=== PATIENT | female | born 1975 | race Caucasian/White ===

== ENCOUNTER 2017-09-15 07:40 | Emergency (ER) | payer SELFPAY ==
[2017-09-15 09:39] LABS: Bilirubin Negative (Negative); Blood, Urine Negative (Negative); Clarity Clear (Clear); Glucose, Urine (Dipstick) Negative (Negative); Leukocyte Negative (Negative); Nitrite Negative (Negative); Protein, Urine (Dipstick) Negative (Neg-Trace); Urobilinogen 0.2 mg/dL (0.2-1.0)
[2017-09-15 09:44] LABS: Specific Gravity, Urine 1.004 (1.002-1.036)
[2017-09-15 09:45] LABS: Pregnancy Test - Urine (BHCG) Negative (Negative); Pregu Control Background? CLEAR/WHITE (CLR/WHITE); Pregu Control Bar Appear? YES (CONTROL BAR); Specific Gravity 1.004 (1.002-1.036)
--- NOTE | 2017-09-15 11:32 | ULT ---
PELVIC ULTRASOUND TRANSVAGINAL AND TRANSABDOMINAL WITH GRAYSCALE AND COLOR FLOW IMAGING PERFORMED: FINDINGS: There is prominence of the endometrium at 1.4 cm. There is no focal uterine lesion identified. Dopple r evaluation reveals flow at each ovary. No suspicious ovarian lesions. Mild free pelvic fluid is non specific. There is also a mild degree of endometrial canal fluid. IMPRESSION: 1. Nonspecific mild free pelvic fluid and endometrial fluid. 2. Prominent endometrium. This may be physiologic, although it is nonspecific. Correlate for patient' s menstrual state. If not performed, Beta HCG value is necessary to exclude endometrial stimulation f rom ectopic , which is not excluded on the basis of this exam. POS: [facility]
== END 2017-09-15 10:05 | disposition home or self-care (01) ==
LOC: MADERS 07:40
DX: R10.31 Right lower quadrant pain (principal); F17.210 Nicotine dependence, cigarettes, uncomplicated
CPT/HCPCS: 76856; 81003; 81025

== ENCOUNTER 2017-09-17 08:13 | Emergency (ER) | payer MEDICAID, SELFPAY ==
[2017-09-17 09:01] LABS: Bacteria/HPF Rare-Few HPF (None Seen); Bilirubin Negative (Negative); Blood, Urine Negative (Negative); Clarity Clear (Clear); Glucose, Urine (Dipstick) Negative (Negative); Leukocyte Negative (Negative); Nitrite Negative (Negative); Protein, Urine (Dipstick) Negative (Neg-Trace); RBC/HPF 0-3 HPF (0-3); Squamous Epithelial 0-3 HPF (0-3); Urobilinogen 0.2 mg/dL (0.2-1.0); WBC/HPF 0-3 HPF (0-3)
[2017-09-17] MEDS ORDERED: Ketorolac Tromethamine 30 MG/ML VIAL ONE (09:03)
[2017-09-17] MEDS ORDERED: Ondansetron ODT 4 MG TAB ONE (09:03)
[2017-09-17] MEDS ORDERED: Iopamidol 370 76% 100 ML VIAL ONE (09:11)
[2017-09-17 09:14] LABS: #Eosinphils 0.1 thou/uL (0.0-0.7); #Lymphocytes 1.4 thou/uL (1.20-3.40); #Monocytes 0.4 thou/uL (0.11-0.59); #Neutrophils 5.7 thou/uL (1.40-6.50); %Basophils 0.6 % (0.0-1.0); %Lymphocytes 18.5 % (21.0-51.0); %Monocytes 5.6 % (0.0-10.0); %Neutrophils 74.3 % (42.0-75.0); Hemoglobin 11.8 g/dL (12.0-16.0); Mean Corpuscular Hemoglobin 29.1 pg (27.0-31.0); Mean Corpuscular Volume 88.1 fl (81.0-99.0); Mean Platelet Volume 7.2 fL (7.4-10.4); Platelet Count 227 thou/uL (130-400); RBC Distribution Width 11.8 % (11.5-14.5); Red Blood Cell (RBC) Count 4.06 mill/uL (4.20-5.40); White Blood Cell (WBC) Count 7.7 thou/uL (4.8-10.8)
[2017-09-17 09:16] LABS: PTT 28.3 SEC (22.9-36.1); Prothrombin Time 13.3 SEC (12.0-14.7)
[2017-09-17 09:24] LABS: BHCG - Serum Negative (NEGATIVE); Pregs Control Background? CLEAR/WHITE (CLR/WHITE); Pregs Control Bar Appear? YES (CONTROL BAR)
[2017-09-17 09:28] LABS: ALT (SGPT) 13 U/L (8-55); AST (SGOT) 12 U/L (5-34); Albumin 4.1 g/dL (3.5-5.0); Alkaline Phosphatase 46 U/L (40-150); Anion Gap 13 mmol/L (10-20); BUN (Urea Nitrogen) 10 mg/dL (7.0-18.7); Bilirubin, Total 0.3 mg/dL (0.2-1.2); Calc. Creatinine Clearance 0 mL/min (70-130); Calcium 9.3 mg/dL (7.8-10.44); Carbon Dioxide 20 mmol/L (22-29); Chloride 110 mmol/L (98-107); Estimated GFR-MDRD 83; Globulin 2.6 g/dL (2.4-3.5); Glucose 105 mg/dL (70-105); Lipase 15 U/L (8-78); Potassium 4.2 mmol/L (3.5-5.1); Protein, Total 6.7 g/dL (6.0-8.3); Sodium 139 mmol/L (136-145)
--- NOTE | 2017-09-17 11:15 | CT ---
CT ABDOMEN AND PELVIS WITH CONTRAST: Date: 09/17/17 HISTORY: Right lower quadrant pain. COMPARISON: Pelvic ultrasound dated 09/15/17. FINDINGS: Lung bases are clear. No pericardial effusion. Submillimeter hypodensity in hepatic segment 7, too small to fully characterize. The spleen and pancreas are unremarkable. There are small left periaortic lymph nodes, as well as sma ll jaswant hepatis lymph nodes. The appendix is visualized and appears normal. There is trace free fluid in the pelvis. No dilated lo ops of large or small bowel. The skeleton is without acute abnormality. IMPRESSION: 1. No acute inflammatory process in the abdomen or pelvis. 2. 7.0 mm hypodensity in right lobe of liver, hepatic segment 7, too small to fully characterize. POS: [facility]
== END 2017-09-17 12:00 | disposition home or self-care (01) ==
LOC: MADERS 08:13
DX: R10.31 Right lower quadrant pain (principal); F17.210 Nicotine dependence, cigarettes, uncomplicated
CPT/HCPCS: 74177; 80053; 81001; 82150; 83690; 84703; 85025; 85610; 85730; 87086; 96374; J1885; Q0162

== ENCOUNTER 2017-12-22 20:05 | Emergency (ER) | payer MEDICAID, SELFPAY ==
[~2017-12-22 20:05] MED LIST: Iopamidol 370 76% 100 ML VIAL ONE; Sodium Chloride 0.9% 1,000 ML BAG ONE
[2017-12-22] MEDS ORDERED: Morphine 4 MG/ML VIAL ONE (20:46)
[2017-12-22] MEDS ORDERED: Ketorolac Tromethamine 30 MG/ML VIAL ONE (20:46)
[2017-12-22 20:50] LABS: #Basophils 0.1 thou/uL (0.0-0.2); #Eosinphils 0.1 thou/uL (0.0-0.7); #Lymphocytes 3.2 thou/uL (1.20-3.40); #Monocytes 0.4 thou/uL (0.11-0.59); #Neutrophils 3.3 thou/uL (1.40-6.50); %Lymphocytes 44.8 % (21.0-51.0); %Monocytes 5.3 % (0.0-10.0); Hemoglobin 11.9 g/dL (12.0-16.0); Mean Corpuscular HGB CONC 34.7 g/dL (32.0-36.0); Mean Corpuscular Hemoglobin 30.9 pg (27.0-31.0); Mean Platelet Volume 7.1 fL (7.4-10.4); Platelet Count 214 thou/uL (130-400); RBC Distribution Width 12.3 % (11.5-14.5); Red Blood Cell (RBC) Count 3.87 mill/uL (4.20-5.40)
[2017-12-22 21:03] LABS: Bilirubin Negative (Negative); Blood, Urine Negative (Negative); Clarity Clear (Clear); Glucose, Urine (Dipstick) Negative (Negative); Leukocyte Negative (Negative); Nitrite Negative (Negative); Protein, Urine (Dipstick) Trace mg/dL (Neg-Trace); Urobilinogen 0.2 mg/dL (0.2-1.0)
[2017-12-22 21:08] LABS: ALT (SGPT) 47 U/L (8-55); AST (SGOT) 24 U/L (5-34); Albumin 4.1 g/dL (3.5-5.0); Alkaline Phosphatase 54 U/L (40-150); Anion Gap 10 mmol/L (10-20); BUN (Urea Nitrogen) 15 mg/dL (7.0-18.7); Bilirubin, Total 0.2 mg/dL (0.2-1.2); Calc. Creatinine Clearance 0 mL/min (70-130); Carbon Dioxide 22 mmol/L (22-29); Chloride 112 mmol/L (98-107); Estimated GFR-MDRD 45; Globulin 2.7 g/dL (2.4-3.5); Glucose 104 mg/dL (70-105); Potassium 3.7 mmol/L (3.5-5.1); Protein, Total 6.8 g/dL (6.0-8.3); Sodium 140 mmol/L (136-145)
--- NOTE | 2017-12-22 22:09 | CT ---
CT ABDOMEN AND PELVIS WITH IV CONTRAST: 12/22/17 HISTORY: Right groin pain. History of right oophorectomy in October. COMPARISON: 09/17/17. FINDINGS: There is a stable subcentimeter too small to characterize hypodense lesion within the posterior aspec t right hepatic lobe. The liver otherwise has a normal CT appearance. The lung bases, spleen, pancreas, bilateral adrenal glands, kidneys, and abdominal aorta demonstrate a normal CT appearance. The urinary bladder is mostly decompressed and not well evaluated. The uterus has a grossly normal CT appearance. The previously noted cyst/dominant follicle on the lef t ovary is no longer visualized. There is a trace amount of free fluid in the pelvis. The appendix is visualized and normal in caliber. Loops of small bowel are also normal in caliber. There is no free fluid collection or lymphadenopathy seen in the abdomen or pelvis. There has been no other interval change from the prior exam. The right ovary is not visualized, but the patient report s history of right oophorectomy. IMPRESSION: 1. No acute findings are see in the abdomen or pelvis. 2. Stable subcentimeter too small to characterize hypodense lesions in the right hepatic lobe. 3. No CT evidence of appendicitis. 4. Trace amount of free fluid in the pelvis, likely physiologic in origin. POS: [facility]
[2017-12-22] MEDS ORDERED: Acetaminophen 325 MG TAB ONE (22:31)
[2017-12-22] MEDS ORDERED: HYDROcodone/Acetaminophen 10/325 mg Tablet ONE (22:31)
== END 2017-12-22 22:38 | disposition home or self-care (01) ==
LOC: MADERS 20:05
DX: R10.31 Right lower quadrant pain (principal); F17.210 Nicotine dependence, cigarettes, uncomplicated; Z79.899 Other long term (current) drug therapy
CPT/HCPCS: 74177; 80053; 81003; 85025; 96361; 96374; 96375; J1885; J2270; J7050

== ENCOUNTER 2018-07-18 19:44 | Emergency (ER) | payer BC, MEDICAID ==
[2018-07-18 20:17] LABS: #Basophils 0.1 thou/uL (0.0-0.2); #Eosinphils 0.2 thou/uL (0.0-0.7); #Lymphocytes 2.8 thou/uL (1.20-3.40); #Monocytes 0.4 thou/uL (0.11-0.59); #Neutrophils 3.1 thou/uL (1.40-6.50); %Basophils 0.9 % (0.0-1.0); %Eosinophils 3.2 % (0.0-10.0); %Lymphocytes 42.7 % (21.0-51.0); %Monocytes 6.3 % (0.0-10.0); %Neutrophils 46.8 % (42.0-75.0); Hemoglobin 11.3 g/dL (12.0-16.0); Mean Corpuscular HGB CONC 33.6 g/dL (32.0-36.0); Mean Corpuscular Hemoglobin 30.7 pg (27.0-31.0); Mean Corpuscular Volume 91.3 fL (78.0-98.0); Mean Platelet Volume 7.3 fL (7.4-10.4); Platelet Count 219 thou/uL (130-400); RBC Distribution Width 12.1 % (11.5-14.5); Red Blood Cell (RBC) Count 3.68 mill/uL (4.20-5.40); White Blood Cell (WBC) Count 6.6 thou/uL (4.8-10.8)
--- NOTE | 2018-07-18 20:29 | RAD ---
FPortable chest: HISTORY: Chest pain COMPARISON: 2013 FINDINGS: Lung chamberlain are clear. Heart and mediastinum appear unremarkable. Vascularity is normal. Visualized osseous structures unremarkable. IMPRESSION: No acute finding
[2018-07-18 20:31] LABS: ALT (SGPT) 17 U/L (8-55); AST (SGOT) 19 U/L (5-34); Albumin 4.1 g/dL (3.5-5.0); Alkaline Phosphatase 59 U/L (40-150); Anion Gap 16 mmol/L (10-20); BUN (Urea Nitrogen) 16 mg/dL (7.0-18.7); Bilirubin, Total 0.2 mg/dL (0.2-1.2); Calc. Creatinine Clearance 0 mL/min (70-130); Calcium 9.2 mg/dL (7.8-10.44); Carbon Dioxide 23 mmol/L (22-29); Chloride 107 mmol/L (98-107); Estimated GFR-MDRD 55; Globulin 2.6 g/dL (2.4-3.5); Glucose 125 mg/dL (70-105); Potassium 3.8 mmol/L (3.5-5.1); Protein, Total 6.7 g/dL (6.0-8.3); Sodium 142 mmol/L (136-145)
== END 2018-07-18 21:15 | disposition home or self-care (01) ==
LOC: MADERS 19:44
DX: I31.9 Disease of pericardium, unspecified (principal); F17.210 Nicotine dependence, cigarettes, uncomplicated
CPT/HCPCS: 71045; 80053; 83880; 84484; 85025; 93005

== ENCOUNTER 2018-07-27 10:35 | Outpatient (CLI) | payer BC, MEDICAID | END 2018-07-27 10:36 | disposition home or self-care (01) | LOC: MADEKG 10:35 | PROVIDERS: ATTEND Family Medicine | DX: I30.1 Infective pericarditis (principal) | CPT/HCPCS: 93005; 93010 ==

== ENCOUNTER 2018-10-11 20:28 | Emergency (ER) | payer BC ==
[2018-10-11] MEDS ORDERED: Morphine 4 MG/ML VIAL ONE (20:48)
[2018-10-11] MEDS ORDERED: Ibuprofen 800 MG TAB ONE (20:48)
== END 2018-10-11 21:32 | disposition home or self-care (01) ==
LOC: MADERS 20:28
DX: M54.6 Pain in thoracic spine (principal); F17.210 Nicotine dependence, cigarettes, uncomplicated
CPT/HCPCS: 96372; J2270

== ENCOUNTER 2019-06-20 19:54 | Emergency (ER) | payer BC, MEDICAID, SELFPAY ==
--- NOTE | 2019-06-20 21:08 | RAD ---
EXAM: CHEST ONE VIEW HISTORY: Dyspnea COMPARISON: 07/18/2018 FINDINGS: The cardiac silhouette and pulmonary vasculature is within normal limits. The lungs are clear. The os seous structures are intact. Chest is stable compared to prior exam. IMPRESSION: No acute cardiopulmonary process.
== END 2019-06-20 22:10 | disposition home or self-care (01) ==
LOC: MADERS 19:54
DX: J06.9 Acute upper respiratory infection, unspecified (principal); F17.210 Nicotine dependence, cigarettes, uncomplicated
CPT/HCPCS: 71045; 87804; J7620

== ENCOUNTER 2021-05-17 16:23 | Emergency (ER) | payer SELFPAY | END 2021-05-17 17:20 | disposition home or self-care (01) | LOC: MADERS 16:23 | DX: H11.31 Conjunctival hemorrhage, right eye (principal); F17.210 Nicotine dependence, cigarettes, uncomplicated | CPT/HCPCS: 99283 ==